=== PATIENT | male | born 1995 | race Asian ===

== ENCOUNTER 2017-01-28 00:45 | Emergency (ER) | payer BC ==
[~2017-01-28] VITALS: Ht 170.2 cm; Wt 65.9 kg
[2017-01-28 00:54] VITALS: BP 136/78; TEMP 98.1
[2017-01-28] MEDS ORDERED: ADDERALL20 MG PO (00:59)
[2017-01-28 02:28] VITALS: PULSE 83
== END 2017-01-28 02:28 | disposition home or self-care (01) ==
LOC: COL.ER 00:45
DX: R59.0 Localized enlarged lymph nodes (principal); R07.89 Other chest pain; F41.9 Anxiety disorder, unspecified